=== PATIENT | male | born 1970 | race Caucasian/White ===

== ENCOUNTER 2025-07-09 06:27 | Day surgery (SDC) | payer OTHER, SELFPAY | END 2025-07-09 09:06 | disposition home or self-care (01) | LOC: GI 06:27 | PROVIDERS: ATTENDING PHYSICIAN Internal Medicine | DX: Z12.11 Encounter for screening for malignant neoplasm of colon (principal); Z86.0101 Personal history of adenomatous and serrated colon polyps; K57.30 Diverticulosis of large intestine without perforation or abscess without bleeding; D12.3 Benign neoplasm of transverse colon; K63.5 Polyp of colon | CPT/HCPCS: 45385; 45380; 88305 ==